=== PATIENT | female | born 1995 | race Caucasian/White ===

== ENCOUNTER 2016-07-06 13:38 | Emergency (ER) | payer BC, MEDICAID ==
[~2016-07-06] VITALS: Ht 165.1 cm; Wt 56.9 kg
[~2016-07-06 13:38] MED LIST: NORCO 325 MG-51 TAB PO; ORTHO TRI-CYCLE1 TAB PO; PROTONIX 40MG T40 MG PO; ZOLOFT 50MG50 MG PO
[2016-07-06 13:42] VITALS: TEMP 98.3
[2016-07-06 14:51] LABS: PH 7 (5-8); URINE APPEARANCE Cloudy; URINE BACTERIA None Seen /hpf; URINE BILIRUBIN Negative (NEGATIVE); URINE BLOOD Negative (NEGATIVE); URINE COLOR Yellow; URINE GLUCOSE Negative (NEGATIVE); URINE KETONE Negative (NEGATIVE); URINE WBC 20-50 /hpf
[2016-07-06] MEDS ORDERED: FLAGYL500 MG PO (15:15)
[2016-07-06 15:28] VITALS: PULSE 71
[2016-07-06 16:34] LABS: CHLAMYDIA/TRACH by PCR Female Not Detected; NEISSERIA GON by PCR Female Detected
== END 2016-07-06 15:28 | disposition home or self-care (01) ==
LOC: COL.ER 13:38
PROVIDERS: Physician Assistant
DX: N76.0 Acute vaginitis (principal)
CPT/HCPCS: J0696

== ENCOUNTER 2016-09-07 13:39 | Emergency (ER) | payer BC, MEDICAID ==
[~2016-09-07] VITALS: Ht 165.1 cm; Wt 58.2 kg
[~2016-09-07 13:39] MED LIST changes: +FLAGYL500 MG PO
[2016-09-07 13:45] VITALS: TEMP 98.3
[2016-09-07 15:59] VITALS: BP 120/74; PULSE 68
== END 2016-09-07 16:00 | disposition home or self-care (01) ==
LOC: COL.ER 13:39
DX: S09.90XA Unspecified injury of head, initial encounter (principal); Y04.2XXA Assault by strike against or bumped into by another person, initial encounter; R40.2362 Coma scale, best motor response, obeys commands, at arrival to emergency department; R40.2142 Coma scale, eyes open, spontaneous, at arrival to emergency department; R40.2252 Coma scale, best verbal response, oriented, at arrival to emergency department; Y92.89 Other specified places as the place of occurrence of the external cause